=== PATIENT | male | born 1975 | race Caucasian/White ===

== ENCOUNTER 2019-06-27 15:00 | Inpatient (IN) | payer OTHER ==
[2019-06-27 18:37] VITALS: BMI 42.0
--- NOTE | 2019-06-27 21:38 | HP ---
CIWA Score - Admission Criteria [facility]ASAS Guidelines: Admission for Medically Managed Detox: Requires at least one of the followin. CIWA greater than 12 2. Seizures within the past 24 hours 3. Delirium tremens within the past 24 hours 4. Hallucinations within the past 24 hours 5. Acute intervention needed for co occurring medical disorder 6. Acute intervention needed for co occurring psychiatric disorder 7. Severe withdrawal that cannot be handled at a lower level of care (continued vomiting, continued diarrhea, abnormal vital signs) requiring intravenous medication and/or fluids 8. Admission ROS S - HPI Chief Complaint: Seeking admission to Rehab. Allergies/Adverse Reactions: Allergies Allergy/AdvReac Type Severity Reaction Status Date / Time No Known Allergies Allergy Verified 06/27/19 18:28 History of Present Illness: 44 years male with a long history of heroin dependence is seeking admission to rehab. He has medical history of PVD, Pre-Diabetes and hyperlipidemia. He has prosthetic left eye. He denies suicidal ideation at this time. This is his first admission to [facility]. Exam Limitations: Physical Impairment - Ebola screening Have you traveled outside of the country in the last 21 days: No Have you had contact with anyone from an Ebola affected area: No - Review of Systems Constitutional: No Symptoms Reported EENT: reports: No Symptoms Reported Respiratory: reports: No Symptoms reported Cardiac: reports: No Symptoms Reported GI: reports: No Symptoms Reported : reports: No Symptoms Reported Musculoskeletal: reports: No Symptoms Reported Integumentary: reports: No Symptoms Reported Neuro: reports: No Symptoms reported Endocrine: reports: No Symptoms Reported Hematology: reports: No Symptoms Reported Psychiatric: reports: No Sypmtoms Reported, Mood/Affect Appropiate, Orientated x3 Other Systems: Reviewed and Negative Patient History - Patient Medical History Hx Anemia: No Hx Asthma: No Hx Chronic Obstructive Pulmonary Disease (COPD): No Hx Cancer: No Hx Cardiac Disorders: No Hx Congestive Heart Failure: No Hx Hypertension: No Hx Hypercholesterolemia: Yes (Not on medication) HX Cerebrovascular Accident: No Hx Seizures: No Hx Diabetes: Yes (PRE- DIABETES) Hx Gastrointestinal Disorders: No Hx Liver Disease: No Hx Genitourinary Disorders: No Hx Sexually Transmitted Disorders: No Hx Renal Disease (ESRD): No Hx Thyroid Disease: No Hx Human Immunodeficiency Virus (HIV): No (NEGATIVE 2018) Hx Hepatitis C: No Hx Depression: No Hx Suicide Attempt: No (DENIES SUICIDAL IDEATION AT THIS TIME) Hx Bipolar Disorder: No Hx Schizophrenia: No Other Medical History: PVD - NOT ON MEDICATION - Patient Surgical History Past Surgical History: Yes Hx Neurologic Surgery: No Hx Cataract Extraction: No Hx Cardiac Surgery: No Hx Lung Surgery: No Hx Abdominal Surgery: No Hx Appendectomy: No Hx Cholecystectomy: No Hx Genitourinary Surgery: No Hx Section: No Hx Orthopedic Surgery: No Other Surgical History: EYE SURGERY 2000 and 2008 Anesthesia Reaction: No - PPD History Previous Implant?: Yes Documented Results: Negative w/o proof Implanted On Prior [facility] Admission?: No PPD to be Administered?: Yes - Reproductive History Patient is a Female of Child Bearing Age (11 -55 yrs old): No (MALE) - Smoking Cessation Smoking history: Current every day smoker Have you smoked in the past 12 months: Yes Aproximately how many cigarettes per day: 20 Hx Chewing Tobacco Use: No Initiated information on smoking cessation: Yes 'Breaking Loose' booklet given: 06/27/19 - Substance & Tx. History Hx Alcohol Use: No Hx Substance Use: Yes Substance Use Type: Cocaine, Heroin, Opiates Hx [facility] - Substances abused Heroin Substance route: Inhalation Frequency: Daily Amount used: 3 bundles Age of first use: 20 Date of last use: 06/27/19 Cocaine Other (specify): crack Substance route: Smoking Frequency: Daily Amount used: 2 grams Age of first use: 23 Date of last use: 06/27/19 Admission Physical Exam [facility] - Vital Signs Vital Signs: Vital Signs - 24 hr 06/27/19 18:22 Temperature 98.4 F Pulse Rate 75 Respiratory 16 Rate Blood Pressure 126/74 - Physical General Appearance: Yes: No Apparent Distress, Nourished HEENTM: Yes: Within Normal Limits, Normocephalic, Normal Voice, JESSICA Respiratory: Yes: Lungs Clear, Normal Breath Sounds, No Respiratory Distress Neck: Yes: Within Normal Limits Breast: Yes: Breast Exam Deferred Cardiology: Yes: Regular Rhythm, Regular Rate Abdominal: Yes: Within Normal Limits Genitourinary: Yes: Within Normal Limits Musculoskeletal: Yes: Within Normal Limits, Pelvis Stable Extremities: Yes: Normal Inspection Neurological: Yes: Within Normal Limits, Alert, Normal Mood/Affect Integumentary: Yes: Warm Lymphatic: Yes: Within Normal Limits - Diagnostic (1) Heroin dependence Current Visit: Yes Status: Chronic (2) Cocaine dependence Current Visit: Yes Status: Chronic Qualifiers: Substance use status: uncomplicated Qualified Code(s): F14.20 - Cocaine dependence, uncomplicated (3) PVD (peripheral vascular disease) Current Visit: Yes Status: Chronic (4) Pre-diabetes Current Visit: Yes Status: Chronic (5) Hyperlipemia Current Visit: Yes Status: Chronic Qualifiers: Hyperlipidemia type: unspecified Qualified Code(s): E78.5 - Hyperlipidemia , unspecified (6) Nicotine dependence Current Visit: Yes Status: Acute Qualifiers: Nicotine product type: cigarettes Substance use status: uncomplicated Qualified Code(s): F17.210 - Nicotine dependence, cigarettes, uncomplicated Cleared for Admission [facility] - Detox or Rehab [facility] Level of Care: Observation Bed Claeared for Rehab Admission: Yes Breathalyzer - Breathalyzer Breathalyzer: 0 Urine Drug Screen - Test Device Lot number: [id number] Expiration date: 02/19/21 - Control Is test valid?: No - Results Drug screen NEGATIVE: No Urine drug screen results: KAMRAN-Cocaine, FEN-Fentanyl, MOP-Opiates, OXY-Oxycodone , MTD-Methadone Inpatient Rehab Admission - Rehab Decision to Admit Inpatient rehab admission?: No - Initial Determination Free of communicable disease: Yes Not in need of hospitalization: Yes - Rehab Admission Criteria Previous failed treatment: Yes Poor recovery environment: Yes Comorbidities: Yes Lacks judgement: No Patient is meeting Inpatient Rehab admission criteria:: Yes
[2019-06-27] MEDS ORDERED: NICOTINE POLACRILEX 2 MG GUM BC PRN (21:47)
[2019-06-27] MEDS ORDERED: MAGNESIUM CITRATE 300 ML BOTTLE PO PRN (21:47)
[2019-06-27] MEDS ORDERED: IBUPROFEN 400 MG TABLET (FP) PO PRN (21:47)
[2019-06-27] MEDS ORDERED: LOPERAMIDE HCL 2 MG CAPSULE PO PRN (21:47)
[2019-06-27] MEDS ORDERED: ACETAMINOPHEN 325 MG TABLET (FP) PO PRN (21:47)
[2019-06-27] MEDS ORDERED: MAG HYDROX/AL HYDROX/SIMETH 30 ML UNIT-DOSE CUP PO PRN (21:47)
[2019-06-27] MEDS ORDERED: guaiFENesin 200 MG/10 ML 10 ML UNIT-DOSE CUPS PO PRN (21:47)
[2019-06-27] MEDS ORDERED: MAGNESIUM HYDROX 2400MG/30ML ORAL SUSPENSION 30 ML CUP PO PRN (21:47)
[2019-06-27] MEDS ORDERED: MENTHOL/PHENOL 1 EACH UD MM PRN (21:47)
[2019-06-27] MEDS ORDERED: P-EPHED 60MG/TRIPROLIDI 2.5MG TABLET PO PRN (21:47)
[2019-06-28] MEDS: MELATONIN 5 MG TABLETS PO PRN ×2 (00:49→21:25)
[2019-06-28] MEDS: THIAMINE HCL 100 MG TABLET (FP) PO SCH ×2 (00:52→21:25)
[2019-06-28] MEDS ORDERED: hydrOXYzine PAMOATE 50 MG CAPSULE (FP) PO ONE (01:10)
[2019-06-28] MEDS ORDERED: METHADONE HCL 10 MG TABLET PO ONE (08:24)
[2019-06-28] MEDS ORDERED: METHADONE 80 MG, METHADONE 20 MG PO ONE (08:45)
[2019-06-28] MEDS ORDERED: METHADONE HCL 10 MG TABLET ONE (08:56)
[2019-06-28] MEDS ORDERED: METHADONE HCL 40 MG DISPERSABLE TABLET ONE (08:57)
[2019-06-28] MEDS: NICOTINE 21 MG/24 HOURS TOPICAL PATCH TD SCH (08:59)
[2019-06-28] MEDS: PRENATAL VITAMINS W/ FOLIC ACID TABLET (FP) PO SCH (08:59)
--- NOTE | 2019-06-28 10:39 | EKG ---
Test Reason : Blood Pressure : / mmHG Vent. Rate : 063 BPM Atrial Rate : 063 BPM P-R Int : 136 ms QRS Dur : 092 ms QT Int : 416 ms P-R-T Axes : 002 036 042 degrees QTc Int : 425 ms NORMAL SINUS RHYTHM NORMAL ECG NO PREVIOUS ECGS AVAILABLE Confirmed by KRZYSZTOF FITZGERALD, QUANG ([id number]) on 06/28/2019 10:39:37 AM Referred By: Confirmed By:QUANG BLANKENSHIP MD
[2019-06-28 12:43] LABS: HEMATOCRIT 43.2 % (35.4-49); HEMOGLOBIN 14.3 GM/dL (11.7-16.9); MCH 30.9 pg (25.7-33.7); MCHC 33.1 g/dl (32.0-35.9); MEAN CELL VOLUME 93.3 fl (80-96); PLATELET COUNT 255 K/MM3 (134-434); RBC 4.63 M/mm3 (4.00-5.60); RDW 13.6 % (11.9-15.9)
[2019-06-28 12:58] LABS: ALBUMIN 3.4 g/dl (3.4-5.0); BILIRUBIN,TOTAL 0.5 mg/dL (0.2-1); BLOOD UREA NITROGEN 9.7 mg/dL (7-18); CALCIUM 8.9 mg/dL (8.5-10.1); CREATININE 1.1 mg/dL (0.55-1.3); POTASSIUM 3.9 mmol/L (3.5-5.1); TOT PROT 6.8 g/dl (6.4-8.2)
[2019-06-29] MEDS ORDERED: METHADONE HCL 10 MG TABLET PO SCH (06:00)
[2019-06-29] MEDS ORDERED: METHADONE HCL 40 MG DISPERSABLE TABLET ONE (06:23)
[2019-06-29] MEDS ORDERED: METHADONE HCL 10 MG TABLET ONE (06:23)
[2019-06-29] MEDS: METHADONE 80 MG, METHADONE 20 MG PO SCH (06:23)
[2019-06-29] MEDS: NICOTINE 21 MG/24 HOURS TOPICAL PATCH TD SCH ×2 (11:00→15:00)
[2019-06-29] MEDS: PRENATAL VITAMINS W/ FOLIC ACID TABLET (FP) PO SCH (11:00)
[2019-06-29 12:00] LABS: PH,URINE 5.5 (5.0-8.0); URINE APPEARANCE CLEAR; URINE BILIRUBIN NEGATIVE (NEGATIVE); URINE COLOR YELLOW; URINE GLUCOSE (UA) NEGATIVE (NEGATIVE); URINE KETONE TRACE (NEGATIVE); URINE LEUK ESTERASE NEGATIVE (NEGATIVE); URINE NITRITE NEGATIVE (NEGATIVE); URINE PROTEIN NEGATIVE (NEGATIVE); URINE UROBILINOGEN 0.2 mg/dL (0.2-1.0)
[2019-06-29] MEDS: MELATONIN 5 MG TABLETS PO PRN (21:29)
[2019-06-29] MEDS: THIAMINE HCL 100 MG TABLET (FP) PO SCH (21:29)
[2019-06-30] MEDS ORDERED: METHADONE HCL 10 MG TABLET ONE (05:48)
[2019-06-30] MEDS ORDERED: METHADONE HCL 40 MG DISPERSABLE TABLET ONE (05:48)
[2019-06-30] MEDS: METHADONE 80 MG, METHADONE 20 MG PO SCH (06:10)
[2019-06-30] MEDS: NICOTINE 21 MG/24 HOURS TOPICAL PATCH TD SCH (10:43)
[2019-06-30] MEDS: PRENATAL VITAMINS W/ FOLIC ACID TABLET (FP) PO SCH (10:43)
--- NOTE | 2019-06-30 14:58 | PN ---
S Progress Note (SOAP) Subjective: Pt reports he has tendonitis of his left ankle that's painful for months now, tooth cavities which becomes tingly when he eats. Requesting for relief because has been running the streets and did not pay attention to himself. Also stats "part of it is my weight. I'm obessed". Reports he has seen his primary care at [facility]/Methadone at [facility] , [place], [place]. Reports xrays were done and diagnosed with left ankle tendonitis. Objective: 06/30/19 14:58 Vital Signs - 24 hr 06/30/19 06/30/19 06/30/19 00:30 03:30 07:27 Temperature 97.8 F Pulse Rate 69 Respiratory 18 18 18 Rate Blood Pressure 118/76 Extremities:lower legs with brown skin discolorations, rambo. left ankle, lateral side with slight swelling, no redness. Oral exam:multiple teeth fillings. no redness or swelling to gums. Assessment: 06/30/19 15:00 Left ankle mild swelling Obesity Vascular insufficiency Poor dental hygiene Plan: Robaxin 500 mg po tid prn motrin 600 mg po q6h prn Analgesic balm apply to left ankle bid CESAR bandage apply to left ankle prn Peridex MM 15 ml BID
[2019-06-30] MEDS ORDERED: IBUPROFEN 600 MG TABLET (FP) PO PRN (15:06)
[2019-06-30] MEDS: THIAMINE HCL 100 MG TABLET (FP) PO SCH (21:33)
[2019-06-30] MEDS: METHOCARBAMOL 500 MG TABLET PO PRN (21:33)
[2019-06-30] MEDS: MELATONIN 5 MG TABLETS PO PRN (21:33)
[2019-06-30] MEDS: CHLORHEXIDINE GLUCONATE 118 ML MOUTHWASH MM SCH (21:33)
[2019-06-30] MEDS: METHYL SALICYLATE/MENTHOL OINT 30 GM TUBE TP SCH (21:35)
[2019-07-01] MEDS ORDERED: METHADONE HCL 10 MG TABLET ONE (03:50)
[2019-07-01] MEDS ORDERED: METHADONE HCL 40 MG DISPERSABLE TABLET ONE (03:50)
[2019-07-01] MEDS: METHADONE 80 MG, METHADONE 20 MG PO SCH (06:41)
[2019-07-01] MEDS: METHOCARBAMOL 500 MG TABLET PO PRN ×3 (06:44→21:29)
[2019-07-01] MEDS: NICOTINE 21 MG/24 HOURS TOPICAL PATCH TD SCH (11:00)
[2019-07-01] MEDS: CHLORHEXIDINE GLUCONATE 118 ML MOUTHWASH MM SCH ×2 (11:00→21:28)
[2019-07-01] MEDS: PRENATAL VITAMINS W/ FOLIC ACID TABLET (FP) PO SCH (11:00)
[2019-07-01] MEDS: METHYL SALICYLATE/MENTHOL OINT 30 GM TUBE TP SCH ×2 (11:00→21:28)
[2019-07-01] MEDS: THIAMINE HCL 100 MG TABLET (FP) PO SCH (21:27)
[2019-07-01] MEDS: MELATONIN 5 MG TABLETS PO PRN (21:29)
[2019-07-02] MEDS ORDERED: METHADONE HCL 40 MG DISPERSABLE TABLET ONE (05:03)
[2019-07-02] MEDS ORDERED: METHADONE HCL 10 MG TABLET ONE (05:03)
[2019-07-02] MEDS: METHADONE 80 MG, METHADONE 20 MG PO SCH (06:38)
[2019-07-02] MEDS: METHOCARBAMOL 500 MG TABLET PO PRN ×2 (06:39→21:51)
[2019-07-02] MEDS: METHYL SALICYLATE/MENTHOL OINT 30 GM TUBE TP SCH ×2 (10:05→21:51)
[2019-07-02] MEDS: CHLORHEXIDINE GLUCONATE 118 ML MOUTHWASH MM SCH ×2 (10:05→21:51)
[2019-07-02] MEDS: PRENATAL VITAMINS W/ FOLIC ACID TABLET (FP) PO SCH (10:05)
[2019-07-02] MEDS: NICOTINE 21 MG/24 HOURS TOPICAL PATCH TD SCH (10:06)
[2019-07-02] MEDS: THIAMINE HCL 100 MG TABLET (FP) PO SCH (21:51)
[2019-07-02] MEDS: MELATONIN 5 MG TABLETS PO PRN (21:51)
[2019-07-03] MEDS ORDERED: METHADONE HCL 40 MG DISPERSABLE TABLET ONE (05:55)
[2019-07-03] MEDS ORDERED: METHADONE HCL 10 MG TABLET ONE (05:55)
[2019-07-03] MEDS: METHADONE 80 MG, METHADONE 20 MG PO SCH (06:33)
[2019-07-03] MEDS: METHOCARBAMOL 500 MG TABLET PO PRN ×2 (06:38→21:30)
[2019-07-03] MEDS: CHLORHEXIDINE GLUCONATE 118 ML MOUTHWASH MM SCH ×2 (09:20→21:30)
[2019-07-03] MEDS: PRENATAL VITAMINS W/ FOLIC ACID TABLET (FP) PO SCH (09:20)
[2019-07-03] MEDS: NICOTINE 21 MG/24 HOURS TOPICAL PATCH TD SCH (09:20)
[2019-07-03] MEDS: METHYL SALICYLATE/MENTHOL OINT 30 GM TUBE TP SCH ×2 (09:20→21:30)
[2019-07-03] MEDS: THIAMINE HCL 100 MG TABLET (FP) PO SCH (21:29)
[2019-07-03] MEDS: MELATONIN 5 MG TABLETS PO PRN (21:29)
[2019-07-04] MEDS ORDERED: METHADONE HCL 10 MG TABLET ONE (05:43)
[2019-07-04] MEDS ORDERED: METHADONE HCL 40 MG DISPERSABLE TABLET ONE (05:43)
[2019-07-04] MEDS: METHADONE 80 MG, METHADONE 20 MG PO SCH (06:20)
[2019-07-04] MEDS: METHOCARBAMOL 500 MG TABLET PO PRN ×2 (06:24→21:25)
[2019-07-04] MEDS: CHLORHEXIDINE GLUCONATE 118 ML MOUTHWASH MM SCH ×2 (09:59→21:25)
[2019-07-04] MEDS: PRENATAL VITAMINS W/ FOLIC ACID TABLET (FP) PO SCH (09:59)
[2019-07-04] MEDS: NICOTINE 21 MG/24 HOURS TOPICAL PATCH TD SCH (09:59)
[2019-07-04] MEDS: METHYL SALICYLATE/MENTHOL OINT 30 GM TUBE TP SCH ×2 (09:59→21:25)
[2019-07-04] MEDS: THIAMINE HCL 100 MG TABLET (FP) PO SCH (21:24)
[2019-07-04] MEDS: MELATONIN 5 MG TABLETS PO PRN (21:25)
[2019-07-05] MEDS ORDERED: METHADONE HCL 10 MG TABLET ONE (05:05)
[2019-07-05] MEDS ORDERED: METHADONE HCL 40 MG DISPERSABLE TABLET ONE (05:06)
[2019-07-05] MEDS: METHADONE 80 MG, METHADONE 20 MG PO SCH (06:53)
[2019-07-05] MEDS ORDERED: METHADONE HCL 10 MG TABLET PO SCH (10:00)
[2019-07-05] MEDS: NICOTINE 21 MG/24 HOURS TOPICAL PATCH TD SCH (10:28)
[2019-07-05] MEDS: METHYL SALICYLATE/MENTHOL OINT 30 GM TUBE TP SCH ×2 (10:28→21:28)
[2019-07-05] MEDS: METHOCARBAMOL 500 MG TABLET PO PRN ×2 (10:29→21:27)
[2019-07-05] MEDS: CHLORHEXIDINE GLUCONATE 118 ML MOUTHWASH MM SCH ×2 (10:29→21:27)
[2019-07-05] MEDS: PRENATAL VITAMINS W/ FOLIC ACID TABLET (FP) PO SCH (10:29)
[2019-07-05] MEDS: THIAMINE HCL 100 MG TABLET (FP) PO SCH (21:27)
[2019-07-05] MEDS: MELATONIN 5 MG TABLETS PO PRN (21:27)
[2019-07-06] MEDS ORDERED: METHADONE HCL 10 MG TABLET ONE (05:48)
[2019-07-06] MEDS ORDERED: METHADONE HCL 40 MG DISPERSABLE TABLET ONE (05:49)
[2019-07-06] MEDS: METHOCARBAMOL 500 MG TABLET PO PRN ×3 (06:34→21:37)
[2019-07-06] MEDS: METHADONE 80 MG, METHADONE 20 MG PO SCH (06:39)
[2019-07-06] MEDS: NICOTINE 21 MG/24 HOURS TOPICAL PATCH TD SCH (10:49)
[2019-07-06] MEDS: PRENATAL VITAMINS W/ FOLIC ACID TABLET (FP) PO SCH (10:49)
[2019-07-06] MEDS: METHYL SALICYLATE/MENTHOL OINT 30 GM TUBE TP SCH ×2 (10:50→21:38)
[2019-07-06] MEDS: CHLORHEXIDINE GLUCONATE 118 ML MOUTHWASH MM SCH ×2 (10:50→21:38)
[2019-07-06] MEDS: MELATONIN 5 MG TABLETS PO PRN (21:37)
[2019-07-06] MEDS: THIAMINE HCL 100 MG TABLET (FP) PO SCH (21:38)
[2019-07-07] MEDS ORDERED: METHADONE HCL 10 MG TABLET ONE (06:05)
[2019-07-07] MEDS ORDERED: METHADONE HCL 40 MG DISPERSABLE TABLET ONE (06:05)
[2019-07-07] MEDS: METHADONE 80 MG, METHADONE 20 MG PO SCH (06:31)
[2019-07-07] MEDS: METHOCARBAMOL 500 MG TABLET PO PRN ×2 (06:34→21:21)
[2019-07-07] MEDS: METHYL SALICYLATE/MENTHOL OINT 30 GM TUBE TP SCH ×2 (10:14→21:23)
[2019-07-07] MEDS: PRENATAL VITAMINS W/ FOLIC ACID TABLET (FP) PO SCH (10:14)
[2019-07-07] MEDS: CHLORHEXIDINE GLUCONATE 118 ML MOUTHWASH MM SCH ×2 (10:14→21:23)
[2019-07-07] MEDS: NICOTINE 21 MG/24 HOURS TOPICAL PATCH TD SCH (10:15)
[2019-07-07] MEDS: MELATONIN 5 MG TABLETS PO PRN (21:22)
[2019-07-07] MEDS: THIAMINE HCL 100 MG TABLET (FP) PO SCH (21:24)
[2019-07-08] MEDS ORDERED: METHADONE HCL 40 MG DISPERSABLE TABLET ONE (05:57)
[2019-07-08] MEDS ORDERED: METHADONE HCL 10 MG TABLET ONE (05:57)
[2019-07-08] MEDS: METHADONE 80 MG, METHADONE 20 MG PO SCH (06:33)
[2019-07-08] MEDS: METHOCARBAMOL 500 MG TABLET PO PRN ×2 (06:33→21:31)
[2019-07-08] MEDS: METHYL SALICYLATE/MENTHOL OINT 30 GM TUBE TP SCH ×2 (10:00→21:32)
[2019-07-08] MEDS: CHLORHEXIDINE GLUCONATE 118 ML MOUTHWASH MM SCH ×2 (10:00→21:32)
[2019-07-08] MEDS: NICOTINE 21 MG/24 HOURS TOPICAL PATCH TD SCH (10:02)
[2019-07-08] MEDS: PRENATAL VITAMINS W/ FOLIC ACID TABLET (FP) PO SCH (10:02)
[2019-07-08] MEDS: MELATONIN 5 MG TABLETS PO PRN (21:31)
[2019-07-08] MEDS: THIAMINE HCL 100 MG TABLET (FP) PO SCH (21:32)
[2019-07-09] MEDS ORDERED: METHADONE HCL 40 MG DISPERSABLE TABLET ONE (05:49)
[2019-07-09] MEDS ORDERED: METHADONE HCL 10 MG TABLET ONE (05:49)
[2019-07-09] MEDS: METHADONE 80 MG, METHADONE 20 MG PO SCH (06:15)
[2019-07-09] MEDS ORDERED: ONDANSETRON 4 MG TABLET PO PRN (08:43)
[2019-07-09] MEDS: ONDANSETRON *ODT* 4 MG TABLET SL PRN ×2 (09:22→18:13)
[2019-07-09] MEDS: CHLORHEXIDINE GLUCONATE 118 ML MOUTHWASH MM SCH ×2 (09:50→21:16)
[2019-07-09] MEDS: METHYL SALICYLATE/MENTHOL OINT 30 GM TUBE TP SCH ×2 (09:50→21:15)
[2019-07-09] MEDS: PRENATAL VITAMINS W/ FOLIC ACID TABLET (FP) PO SCH (09:50)
[2019-07-09] MEDS: NICOTINE 21 MG/24 HOURS TOPICAL PATCH TD SCH (09:50)
[2019-07-09] MEDS: METHOCARBAMOL 500 MG TABLET PO PRN (18:16)
[2019-07-09] MEDS: MELATONIN 5 MG TABLETS PO PRN (21:15)
[2019-07-09] MEDS: THIAMINE HCL 100 MG TABLET (FP) PO SCH (21:17)
[2019-07-10] MEDS: ONDANSETRON *ODT* 4 MG TABLET SL PRN (04:46)
[2019-07-10] MEDS ORDERED: METHADONE HCL 10 MG TABLET ONE (05:13)
[2019-07-10] MEDS ORDERED: METHADONE HCL 40 MG DISPERSABLE TABLET ONE (05:14)
[2019-07-10] MEDS ORDERED: TRIMETHOBENZAMIDE HCL 200MG/2ML INJ IM ONE (05:37)
[2019-07-10] MEDS: METHADONE 80 MG, METHADONE 20 MG PO SCH (07:03)
[2019-07-10] MEDS: CHLORHEXIDINE GLUCONATE 118 ML MOUTHWASH MM SCH ×2 (10:29→21:10)
[2019-07-10] MEDS: METHYL SALICYLATE/MENTHOL OINT 30 GM TUBE TP SCH ×2 (10:29→21:10)
[2019-07-10] MEDS: NICOTINE 21 MG/24 HOURS TOPICAL PATCH TD SCH (10:29)
[2019-07-10] MEDS: PRENATAL VITAMINS W/ FOLIC ACID TABLET (FP) PO SCH (10:29)
[2019-07-10] MEDS: METHOCARBAMOL 500 MG TABLET PO PRN ×2 (10:30→21:09)
--- NOTE | 2019-07-10 11:16 | PN ---
S Progress Note Note: Pt c/o nausea/vomiting but reports he is feeling better with zofran given earlier. Denies diarrhea, head ache or dizziness. Also reports relief with gingerale. Oob ambulating with steady gait and participating in unit activities. Vital Signs - 24 hr 07/10/19 07/10/19 07/10/19 00:30 03:30 07:09 Temperature 98.1 F Pulse Rate 67 Respiratory 17 18 18 Rate Blood Pressure 132/68 A/P N/V Zofran as directed increase po fluids as tolerated.
[2019-07-10] MEDS: MELATONIN 5 MG TABLETS PO PRN (21:09)
[2019-07-10] MEDS: THIAMINE HCL 100 MG TABLET (FP) PO SCH (21:10)
[2019-07-11] MEDS ORDERED: METHADONE HCL 10 MG TABLET ONE (05:38)
[2019-07-11] MEDS ORDERED: METHADONE HCL 40 MG DISPERSABLE TABLET ONE (05:38)
[2019-07-11] MEDS: METHADONE 80 MG, METHADONE 20 MG PO SCH (05:51)
[2019-07-11] MEDS: METHOCARBAMOL 500 MG TABLET PO PRN ×3 (05:54→21:08)
[2019-07-11] MEDS: CHLORHEXIDINE GLUCONATE 118 ML MOUTHWASH MM SCH ×2 (10:07→21:07)
[2019-07-11] MEDS: NICOTINE 21 MG/24 HOURS TOPICAL PATCH TD SCH (10:07)
[2019-07-11] MEDS: METHYL SALICYLATE/MENTHOL OINT 30 GM TUBE TP SCH ×2 (10:15→21:07)
[2019-07-11] MEDS: PRENATAL VITAMINS W/ FOLIC ACID TABLET (FP) PO SCH (10:15)
[2019-07-11] MEDS: THIAMINE HCL 100 MG TABLET (FP) PO SCH (21:07)
[2019-07-11] MEDS: MELATONIN 5 MG TABLETS PO PRN (21:09)
[2019-07-12] MEDS ORDERED: METHADONE HCL 40 MG DISPERSABLE TABLET ONE (05:36)
[2019-07-12] MEDS ORDERED: METHADONE HCL 10 MG TABLET ONE (05:36)
[2019-07-12] MEDS: METHOCARBAMOL 500 MG TABLET PO PRN ×2 (06:04→21:12)
[2019-07-12] MEDS: METHADONE 80 MG, METHADONE 20 MG PO SCH (06:04)
[2019-07-12] MEDS: METHYL SALICYLATE/MENTHOL OINT 30 GM TUBE TP SCH ×2 (10:04→21:14)
[2019-07-12] MEDS: NICOTINE 21 MG/24 HOURS TOPICAL PATCH TD SCH (10:04)
[2019-07-12] MEDS: CHLORHEXIDINE GLUCONATE 118 ML MOUTHWASH MM SCH ×2 (10:05→21:14)
[2019-07-12] MEDS: PRENATAL VITAMINS W/ FOLIC ACID TABLET (FP) PO SCH (10:06)
--- NOTE | 2019-07-12 11:16 | DS ---
[facility] Rehab Discharge Summary - [facility] Rehab Discharge Summary Admission Date: 06/27/19 Discharge Date: 07/13/19 - History Present History: Cocaine dependence, MMTP, Opioid dependence Additional Comments: pt is a 44 y/o male with a hx of CHACORTA admitted to rehab and requesting early discharge for 07/13/19 to enable him follow up at [facility] where bed is available for him for Shelter Rehab admission. Pt reports he has a primary care provider(dpt does not remember his doctor's name) at [email or web address] [place], [place]. Pertinent Past History: HLD(no meds) PVD PreDM - Discharge Physical Exam Vital Signs: Vital Signs Temperature 97.8 F 07/12/19 06:45 Pulse Rate 69 07/12/19 06:45 Respiratory Rate 18 07/12/19 06:45 Blood Pressure 126/73 07/12/19 06:45 O2 Sat by Pulse Oximetry (%) Alert o x 3 nad oob ambulating with steady gait cardiac:s1 s2, rrr lungs:cta,rambo. abdomen:soft,+bs,+++fatty,nt extremities/skin:no edema, Full ROM,brown skin discoloration on one half lower legs,rambo.; skin intact. Pertinent Admission Physical Exam Findings: Laboratory Tests 06/28/19 06/28/19 06/28/19 06:34 08:30 08:30 WBC 9.0 RBC 4.63 Hgb 14.3 Hct 43.2 MCV 93.3 MCH 30.9 MCHC 33.1 RDW 13.6 Plt Count 255 MPV 9.0 Sodium 139 Potassium 3.9 Chloride 107 Carbon Dioxide 28 Anion Gap 5 L BUN 9.7 Creatinine 1.1 Est GFR (CKD-EPI)AfAm 95.46 Est GFR (CKD-EPI)NonAf 82.36 POC Glucometer 95 Random Glucose 91 Calcium 8.9 Total Bilirubin 0.5 AST 11 L ALT 17 Alkaline Phosphatase 92 Total Protein 6.8 Albumin 3.4 Urine Color Urine Appearance Urine pH Ur Specific [place] Urine Protein Urine Glucose (UA) Urine Ketones Urine Blood Urine Nitrite Urine Bilirubin Urine Urobilinogen Ur Leukocyte Esterase RPR Titer 06/28/19 06/28/19 06/29/19 08:30 16:39 06:59 WBC RBC Hgb Hct MCV MCH MCHC RDW Plt Count MPV Sodium Potassium Chloride Carbon Dioxide Anion Gap BUN Creatinine Est GFR (CKD-EPI)AfAm Est GFR (CKD-EPI)NonAf POC Glucometer 138 103 Random Glucose Calcium Total Bilirubin AST ALT Alkaline Phosphatase Total Protein Albumin Urine Color Urine Appearance Urine pH Ur Specific [place] Urine Protein Urine Glucose (UA) Urine Ketones Urine Blood Urine Nitrite Urine Bilirubin Urine Urobilinogen Ur Leukocyte Esterase RPR Titer Nonreactive 06/29/19 06/29/19 06/30/19 10:05 16:39 06:09 WBC RBC Hgb Hct MCV MCH MCHC RDW Plt Count MPV Sodium Potassium Chloride Carbon Dioxide Anion Gap BUN Creatinine Est GFR (CKD-EPI)AfAm Est GFR (CKD-EPI)NonAf POC Glucometer 134 112 Random Glucose Calcium Total Bilirubin AST ALT Alkaline Phosphatase Total Protein Albumin Urine Color Yellow Urine Appearance Clear Urine pH 5.5 Ur Specific [place] 1.025 Urine Protein Negative Urine Glucose (UA) Negative Urine Ketones Trace H Urine Blood Negative Urine Nitrite Negative Urine Bilirubin Negative Urine Urobilinogen 0.2 Ur Leukocyte Esterase Negative RPR Titer 06/30/19 07/01/19 07/02/19 16:55 06:42 06:36 WBC RBC Hgb Hct MCV MCH MCHC RDW Plt Count MPV Sodium Potassium Chloride Carbon Dioxide Anion Gap BUN Creatinine Est GFR (CKD-EPI)AfAm Est GFR (CKD-EPI)NonAf POC Glucometer 100 80 91 Random Glucose Calcium Total Bilirubin AST ALT Alkaline Phosphatase Total Protein Albumin Urine Color Urine Appearance Urine pH Ur Specific [place] Urine Protein Urine Glucose (UA) Urine Ketones Urine Blood Urine Nitrite Urine Bilirubin Urine Urobilinogen Ur Leukocyte Esterase RPR Titer 07/02/19 07/03/19 07/03/19 17:05 06:35 16:51 WBC RBC Hgb Hct MCV MCH MCHC RDW Plt Count MPV Sodium Potassium Chloride Carbon Dioxide Anion Gap BUN Creatinine Est GFR (CKD-EPI)AfAm Est GFR (CKD-EPI)NonAf POC Glucometer 106 98 118 Random Glucose Calcium Total Bilirubin AST ALT Alkaline Phosphatase Total Protein Albumin Urine Color Urine Appearance Urine pH Ur Specific [place] Urine Protein Urine Glucose (UA) Urine Ketones Urine Blood Urine Nitrite Urine Bilirubin Urine Urobilinogen Ur Leukocyte Esterase RPR Titer 07/04/19 07/04/19 07/05/19 06:22 17:07 06:55 WBC RBC Hgb Hct MCV MCH MCHC RDW Plt Count MPV Sodium Potassium Chloride Carbon Dioxide Anion Gap BUN Creatinine Est GFR (CKD-EPI)AfAm Est GFR (CKD-EPI)NonAf POC Glucometer 93 105 91 Random Glucose Calcium Total Bilirubin AST ALT Alkaline Phosphatase Total Protein Albumin Urine Color Urine Appearance Urine pH Ur Specific [place] Urine Protein Urine Glucose (UA) Urine Ketones Urine Blood Urine Nitrite Urine Bilirubin Urine Urobilinogen Ur Leukocyte Esterase RPR Titer 07/05/19 07/06/19 07/06/19 17:00 06:32 17:07 WBC RBC Hgb Hct MCV MCH MCHC RDW Plt Count MPV Sodium Potassium Chloride Carbon Dioxide Anion Gap BUN Creatinine Est GFR (CKD-EPI)AfAm Est GFR (CKD-EPI)NonAf POC Glucometer 151 96 118 Random Glucose Calcium Total Bilirubin AST ALT Alkaline Phosphatase Total Protein Albumin Urine Color Urine Appearance Urine pH Ur Specific [place] Urine Protein Urine Glucose (UA) Urine Ketones Urine Blood Urine Nitrite Urine Bilirubin Urine Urobilinogen Ur Leukocyte Esterase RPR Titer 07/07/19 07/08/19 07/08/19 06:32 06:31 16:49 WBC RBC Hgb Hct MCV MCH MCHC RDW Plt Count MPV Sodium Potassium Chloride Carbon Dioxide Anion Gap BUN Creatinine Est GFR (CKD-EPI)AfAm Est GFR (CKD-EPI)NonAf POC Glucometer 88 84 112 Random Glucose Calcium Total Bilirubin AST ALT Alkaline Phosphatase Total Protein Albumin Urine Color Urine Appearance Urine pH Ur Specific [place] Urine Protein Urine Glucose (UA) Urine Ketones Urine Blood Urine Nitrite Urine Bilirubin Urine Urobilinogen Ur Leukocyte Esterase RPR Titer 07/09/19 07/09/19 07/10/19 06:18 16:40 07:00 WBC RBC Hgb Hct MCV MCH MCHC RDW Plt Count MPV Sodium Potassium Chloride Carbon Dioxide Anion Gap BUN Creatinine Est GFR (CKD-EPI)AfAm Est GFR (CKD-EPI)NonAf POC Glucometer 142 123 96 Random Glucose Calcium Total Bilirubin AST ALT Alkaline Phosphatase Total Protein Albumin Urine Color Urine Appearance Urine pH Ur Specific [place] Urine Protein Urine Glucose (UA) Urine Ketones Urine Blood Urine Nitrite Urine Bilirubin Urine Urobilinogen Ur Leukocyte Esterase RPR Titer 07/10/19 07/11/19 07/11/19 16:46 05:51 16:24 WBC RBC Hgb Hct MCV MCH MCHC RDW Plt Count MPV Sodium Potassium Chloride Carbon Dioxide Anion Gap BUN Creatinine Est GFR (CKD-EPI)AfAm Est GFR (CKD-EPI)NonAf POC Glucometer 99 102 116 Random Glucose Calcium Total Bilirubin AST ALT Alkaline Phosphatase Total Protein Albumin Urine Color Urine Appearance Urine pH Ur Specific [place] Urine Protein Urine Glucose (UA) Urine Ketones Urine Blood Urine Nitrite Urine Bilirubin Urine Urobilinogen Ur Leukocyte Esterase RPR Titer 07/12/19 06:05 WBC RBC Hgb Hct MCV MCH MCHC RDW Plt Count MPV Sodium Potassium Chloride Carbon Dioxide Anion Gap BUN Creatinine Est GFR (CKD-EPI)AfAm Est GFR (CKD-EPI)NonAf POC Glucometer 100 Random Glucose Calcium Total Bilirubin AST ALT Alkaline Phosphatase Total Protein Albumin Urine Color Urine Appearance Urine pH Ur Specific [place] Urine Protein Urine Glucose (UA) Urine Ketones Urine Blood Urine Nitrite Urine Bilirubin Urine Urobilinogen Ur Leukocyte Esterase RPR Titer - Treatment Discharge Condition: Discharge condition good Hospital Course: Rehabilitated safely and responded well CD aftercare referral accepted - Medication Discharge Medications: Ambulatory Orders NK [No Known Home Medication] 06/27/19 - Medication-Assisted Treatment (MAT) Medication-Assisted Treatment (MAT): No - Discharge Instructions Diet, activity, other medical instructions: Diet:regular Activity: oob ad melissa Other medical instructions:follow up with primary care doctor within 1-2 weeks after discharge. follow up with CD aftercare as recommended and scheduled. - Diagnosis (1) Nicotine dependence Status: Chronic Qualifiers: Nicotine product type: cigarettes Substance use status: uncomplicated Qualified Code(s): F17.210 - Nicotine dependence, cigarettes, uncomplicated (2) Cocaine dependence Status: Chronic Qualifiers: Substance use status: uncomplicated Qualified Code(s): F14.20 - Cocaine dependence, uncomplicated (3) Heroin dependence Status: Chronic (4) Hyperlipemia Status: Chronic Qualifiers: Hyperlipidemia type: unspecified Qualified Code(s): E78.5 - Hyperlipidemia , unspecified (5) PVD (peripheral vascular disease) Status: Chronic (6) Pre-diabetes Status: Suspected (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
[2019-07-12] MEDS: MELATONIN 5 MG TABLETS PO PRN (21:13)
[2019-07-12] MEDS: THIAMINE HCL 100 MG TABLET (FP) PO SCH (21:14)
[2019-07-13] MEDS ORDERED: METHADONE HCL 10 MG TABLET ONE (05:45)
[2019-07-13] MEDS ORDERED: METHADONE HCL 40 MG DISPERSABLE TABLET ONE (05:45)
[2019-07-13] MEDS: METHOCARBAMOL 500 MG TABLET PO PRN (06:04)
[2019-07-13] MEDS: METHADONE 80 MG, METHADONE 20 MG PO SCH (06:04)
[2019-07-13 07:01] VITALS: BP 128/74; PULSE 73; TEMP 97.3
== END 2019-07-13 08:15 | disposition other institution (70) | DRG 772 ==
LOC: YASAS 15:00 → Y5N 23:03
PROVIDERS: ADMIT Neuromusculoskeletal Medicine & OMM; ATTEND Neuromusculoskeletal Medicine & OMM
PROC: HZ42ZZZ Group Counseling for Substance Abuse Treatment, Cognitive-Behavioral (ICD-10-PCS; principal; 2019-06-27)
DX: F11.20 Opioid dependence, uncomplicated (principal); F14.20 Cocaine dependence, uncomplicated; F17.210 Nicotine dependence, cigarettes, uncomplicated; E78.5 Hyperlipidemia, unspecified; I73.9 Peripheral vascular disease, unspecified; K02.9 Dental caries, unspecified; M25.471 Effusion, right ankle; M79.89 Other specified soft tissue disorders; E66.9 Obesity, unspecified; Z68.41 Body mass index [BMI] 40.0-44.9, adult
CPT/HCPCS: 36415; 80053; 81003; 82962; 85027; 86593; 93005; 93010; Q0162

== ENCOUNTER 2022-01-18 10:10 | Inpatient (IN) | payer OTHER ==
[2022-01-18] MEDS ORDERED: MAG HYDROX/AL HYDROX/SIMETH 30 ML UNIT-DOSE CUP PO PRN (14:14)
[2022-01-18] MEDS ORDERED: MAGNESIUM CITRATE 300 ML BOTTLE PO PRN (14:14)
[2022-01-18] MEDS ORDERED: BISMUTH SUBSALICYLATE 524 MG/30 ML PO PRN (14:14)
[2022-01-18] MEDS ORDERED: MELATONIN 5 MG TABLETS PO PRN (14:14)
[2022-01-18] MEDS ORDERED: DICYCLOMINE HCL 10 MG CAPSULE PO PRN (14:14)
[2022-01-18] MEDS ORDERED: MAGNESIUM HYDROX 2400MG/30ML ORAL SUSPENSION 30 ML CUP PO PRN (14:14)
[2022-01-18] MEDS ORDERED: ONDANSETRON *ODT* 4 MG TABLET SL PRN (14:14)
[2022-01-18] MEDS ORDERED: BENZOCAINE/MENTHOL (CHLORASEPTIC ) LOZENGE MM PRN (14:14)
[2022-01-18] MEDS ORDERED: LOPERAMIDE HCL 2 MG CAPSULE PO PRN (14:14)
[2022-01-18] MEDS ORDERED: ACETAMINOPHEN 325 MG TABLET (FP) PO PRN ×2 (14:14)
[2022-01-18] MEDS ORDERED: IBUPROFEN 400 MG TABLET (FP) PO PRN (14:14)
[2022-01-18] MEDS ORDERED: P-EPHED 60MG/TRIPROLIDI 2.5MG TABLET PO PRN (14:14)
[2022-01-18 15:27] VITALS: BMI 52.7
[2022-01-18] MEDS: NICOTINE 10 MG CARTRIDGE (INHALER) IH PRN (18:16)
[2022-01-18] MEDS: METHOCARBAMOL 500 MG TABLET PO PRN (18:22)
[2022-01-18] MEDS: hydrOXYzine PAMOATE 25 MG CAPSULE (FP) PO PRN (18:23)
[2022-01-18] MEDS: THIAMINE HCL 100 MG TABLET (FP) PO SCH (23:11)
[2022-01-19] MEDS: NICOTINE 10 MG CARTRIDGE (INHALER) IH PRN (03:30)
[2022-01-19] MEDS: hydrOXYzine PAMOATE 25 MG CAPSULE (FP) PO PRN (03:34)
[2022-01-19] MEDS: METHOCARBAMOL 500 MG TABLET PO PRN (03:34)
[2022-01-19] MEDS: PRENATAL VITAMINS W/ FOLIC ACID TABLET (FP) PO SCH (10:32)
[2022-01-19] MEDS: THIAMINE HCL 100 MG TABLET (FP) PO SCH (22:24)
[2022-01-20 05:54] VITALS: TEMP 97.1
[2022-01-20 08:47] VITALS: BP 113/73; PULSE 68
[2022-01-20] MEDS: PRENATAL VITAMINS W/ FOLIC ACID TABLET (FP) PO SCH (10:11)
== END 2022-01-20 09:38 | disposition home or self-care (01) | DRG 773 ==
LOC: YASAS 10:10 → Y3N 14:28
PROVIDERS: ADMIT Allergy & Immunology; ATTEND Surgery
PROC: HZ2ZZZZ Detoxification Services for Substance Abuse Treatment (ICD-10-PCS; principal; 2022-01-18)
DX: F11.23 Opioid dependence with withdrawal (principal); F14.20 Cocaine dependence, uncomplicated; F17.210 Nicotine dependence, cigarettes, uncomplicated; E78.5 Hyperlipidemia, unspecified; I73.9 Peripheral vascular disease, unspecified; E66.01 Morbid (severe) obesity due to excess calories; Z68.43 Body mass index [BMI] 50.0-59.9, adult; Z97.0 Presence of artificial eye
CPT/HCPCS: C9803-CS; U0003; U0005